=== PATIENT | male | born 1970 | race Caucasian/White ===

== ENCOUNTER → 2020-03-14 | Outpatient (CLI) | payer OTHER | END | disposition home or self-care (01) | LOC: CVU 13:05 | PROVIDERS: ATTEND Family Medicine | DX: I70.203 Unspecified atherosclerosis of native arteries of extremities, bilateral legs (principal); E11.622 Type 2 diabetes mellitus with other skin ulcer; E11.65 Type 2 diabetes mellitus with hyperglycemia; E78.2 Mixed hyperlipidemia; L98.499 Non-pressure chronic ulcer of skin of other sites with unspecified severity | CPT/HCPCS: 93922; 93925 ==

== ENCOUNTER → 2020-03-23 | Outpatient (CLI) | payer OTHER | END | disposition home or self-care (01) | LOC: WOUND 13:03 | PROVIDERS: ATTEND Family Medicine | DX: I87.313 Chronic venous hypertension (idiopathic) with ulcer of bilateral lower extremity (principal); E11.622 Type 2 diabetes mellitus with other skin ulcer; L97.821 Non-pressure chronic ulcer of other part of left lower leg limited to breakdown of skin; L97.811 Non-pressure chronic ulcer of other part of right lower leg limited to breakdown of skin; E11.21 Type 2 diabetes mellitus with diabetic nephropathy; E78.5 Hyperlipidemia, unspecified; L40.8 Other psoriasis; E66.01 Morbid (severe) obesity due to excess calories; Z68.42 Body mass index [BMI] 45.0-49.9, adult | CPT/HCPCS: 99214 ==

== ENCOUNTER → 2020-03-30 | Outpatient (CLI) | payer OTHER | END | disposition home or self-care (01) | LOC: WOUND 09:45 | PROVIDERS: ATTEND Family Medicine | DX: I87.313 Chronic venous hypertension (idiopathic) with ulcer of bilateral lower extremity (principal); E11.621 Type 2 diabetes mellitus with foot ulcer; I70.245 Atherosclerosis of native arteries of left leg with ulceration of other part of foot; L97.521 Non-pressure chronic ulcer of other part of left foot limited to breakdown of skin; I70.235 Atherosclerosis of native arteries of right leg with ulceration of other part of foot; L97.511 Non-pressure chronic ulcer of other part of right foot limited to breakdown of skin; E11.21 Type 2 diabetes mellitus with diabetic nephropathy; L40.8 Other psoriasis; E78.2 Mixed hyperlipidemia; E66.01 Morbid (severe) obesity due to excess calories; Z68.42 Body mass index [BMI] 45.0-49.9, adult | CPT/HCPCS: 99214 ==

== ENCOUNTER → 2020-04-13 | Outpatient (CLI) | payer OTHER | END | disposition home or self-care (01) | LOC: WOUND 09:37 | PROVIDERS: ATTEND Family Medicine | DX: I87.313 Chronic venous hypertension (idiopathic) with ulcer of bilateral lower extremity (principal); E11.621 Type 2 diabetes mellitus with foot ulcer; L97.521 Non-pressure chronic ulcer of other part of left foot limited to breakdown of skin; L97.511 Non-pressure chronic ulcer of other part of right foot limited to breakdown of skin; E11.21 Type 2 diabetes mellitus with diabetic nephropathy; L40.8 Other psoriasis; E78.2 Mixed hyperlipidemia; E66.01 Morbid (severe) obesity due to excess calories; Z68.42 Body mass index [BMI] 45.0-49.9, adult | CPT/HCPCS: 99214 ==

== ENCOUNTER → 2020-04-27 | Outpatient (CLI) | payer OTHER | END | disposition home or self-care (01) | LOC: WOUND 08:54 | PROVIDERS: ATTEND Family Medicine | DX: I87.313 Chronic venous hypertension (idiopathic) with ulcer of bilateral lower extremity (principal); E11.621 Type 2 diabetes mellitus with foot ulcer; L97.528 Non-pressure chronic ulcer of other part of left foot with other specified severity; L97.518 Non-pressure chronic ulcer of other part of right foot with other specified severity; E11.21 Type 2 diabetes mellitus with diabetic nephropathy; L40.8 Other psoriasis; E78.2 Mixed hyperlipidemia; E66.01 Morbid (severe) obesity due to excess calories; Z68.42 Body mass index [BMI] 45.0-49.9, adult | CPT/HCPCS: 99213 ==

== ENCOUNTER 2020-05-24 16:15 | Inpatient (IN) | payer OTHER ==
[~2020-05-24] VITALS: Ht 180.3 cm; Wt 162.0 kg
--- NOTE | 2020-05-24 17:02 | NUR ---
SEEN AAT TELEMEDICINE. CELLULITIS OF RIGHT THIGH AND INTO GROIN. DIABETIC HAS HAD CHILLS AND TMAX OF 99. HR 120-130 PROVIDER TO BEDSIDE: FULL SEPSIS WORKUP AND ADMIT LINE OF DEMARCATION TO RIGHT THIGH DRAWN AT 1700 05/24/20
--- NOTE | 2020-05-24 17:30 | NUR ---
piv placed from which 1 set of blood cultures drawn, lab at bedside for rest of septic workup labs including 2nd set of blood cultures cc ua obtained and sent as well
[2020-05-24] MEDS ORDERED: CEFTRIAXONE PMX 1GM/50ML 50 ML ONE (17:33)
[2020-05-24 17:52] LABS: BASOPHILS # (AUTO) 0.04 x10^3/uL (0-0.1); BASOPHILS % (AUTO) 0 % (0-1); EOSINOPHILS # (AUTO) 0.12 x10^3/uL (0-0.4); EOSINOPHILS % (AUTO) 1 % (1-7); LYMPHOCYTES # (AUTO) 1.17 x10^3/uL (1-3.4); LYMPHOCYTES % (AUTO) 10 % (22-44); MD NO; MEAN CORPUSCULAR HEMOGLOBIN 26.9 pg (27.5-34.5); MEAN CORPUSCULAR HGB CONC 32.5 g/dL (33.2-36.2); MEAN PLATELET VOLUME 8.7 fL (7.4-10.4); MONOCYTES % (AUTO) 8 % (2-9); NEUTROPHILS # (AUTO) 9.55 x10^3/uL (1.8-6.8); NEUTROPHILS % (AUTO) 80 % (42-75); PLATELET COUNT 292 x10^3/uL (130-400); RED BLOOD COUNT 5.88 x10^6/uL (4.38-5.82); RED CELL DISTRIBUTION WIDTH 14.6 % (9.4-14.8)
[2020-05-24 17:53] LABS: ALANINE AMINOTRANSFERASE 27 U/L (12-78); ALBUMIN 3.3 g/dL (3.4-5.0); ANION GAP 6 mmol/L (5-15); CALCIUM 9.8 mg/dL (8.5-10.1); CHLORIDE 99 mmol/L (98-107); CREATININE 1.26 mg/dL (0.7-1.3)
[2020-05-24] MEDS ORDERED: IBUPROFEN 600 MG TABLET ONE (17:53)
[2020-05-24 17:55] LABS: ALKALINE PHOSPHATASE 52 U/L (45-117); BILIRUBIN,TOTAL 0.4 mg/dL (0.2-1.0); TOTAL PROTEIN 8.4 g/dL (6.4-8.2)
--- NOTE | 2020-05-24 17:59 | NUR ---
ABX/1ST LITER OF NS COMPLETE/600MG OF MOTRIN FOR FEVER OF 99.9
[2020-05-24] MEDS ORDERED: CEFTRIAXONE PMX 1GM/50ML 50 ML IVPB ONE (18:00)
[2020-05-24] MEDS ORDERED: SODIUM CHLORIDE 0.9% 1,000 ML IV SCH (18:13)
[2020-05-24 18:24] LABS: MICROSCOPIC AUTO
[2020-05-24] MEDS ORDERED: IBUPROFEN 600 MG TABLET PO ONE (18:30)
[2020-05-24] MEDS ORDERED: SODIUM CHLORIDE FLUSH 10ML SYR IVF PRN (18:30)
[2020-05-24] MEDS ORDERED: morphine SULFATE 10 MG/ML, 1ML IVPush PRN (18:30)
[2020-05-24] MEDS ORDERED: ENALAPRILAT 1.25 MG/ML, 2ML IVPush PRN (18:30)
[2020-05-24] MEDS ORDERED: SODIUM CHLORIDE 0.9% 1,000ML IVBOLUS ONE (18:30)
[2020-05-24] MEDS ORDERED: LABETALOL 5MG/ML, 20ML IVPush PRN (18:30)
[2020-05-24] MEDS ORDERED: DOCUSATE 100 MG CAPSULE PO PRN (18:30)
[2020-05-24] MEDS ORDERED: KETOROLAC 30 MG/1 ML IM PRN (18:30)
[2020-05-24] MEDS ORDERED: KETOROLAC 30 MG/1 ML ONE (19:00)
--- NOTE | 2020-05-24 19:02 | NUR ---
REDNESS RECEDING FROM LINE OF DEMARCATION MEDICATED FOR PAIN WELL INPATIENT ABX 1/2 WELL MIVF
[2020-05-24] MEDS: AMPICILLIN/SULBACTAM 3 GM in SODIUM CHLORIDE 0.9% 100 ML IV SCH (19:06)
--- NOTE | 2020-05-24 19:17 | NUR ---
VIBRAMYCIN REQUESTED FROM PHARMACY
[2020-05-24] MEDS ORDERED: ROSU20TA2 PO (20:10)
[2020-05-24] MEDS ORDERED: PIOG1TAB16 PO (20:13)
[2020-05-24] MEDS ORDERED: LISI5TAB7 PO (20:13)
[2020-05-24] MEDS ORDERED: HYDR25TA6 PO (20:13)
[2020-05-24] MEDS ORDERED: LORA10TA62 PO (20:13)
[2020-05-24] MEDS ORDERED: SITA100T PO (20:13)
[2020-05-24] MEDS ORDERED: FENO160T PO (20:13)
--- NOTE | 2020-05-24 20:13 | NUR ---
PRIOR TO TRANSFER UPSTAIRS PROVIDED WITH MEAL, TOLD TO WAIT UNTIL ACCUCHECK FOR SLIDING SCALE COVERAGE UN ADMINISTERED DOXYCYCLINE SENT WITH PATIENT
[2020-05-24] MEDS: HEPARIN 5,000 UNITS/ML, 1ML SQ SCH (20:30)
[2020-05-24] MEDS ORDERED: HYDROCHLOROTHIAZIDE 25 MG TABLET PO ONE (20:30)
[2020-05-24 20:33] VITALS: BP 119/86
[2020-05-24] MEDS: DOXYCYCLINE 100 MG in DEXTROSE 5% 250 ML IV SCH (20:33)
[2020-05-24] MEDS: ATORVASTATIN 10 MG TABLET PO SCH (21:27)
[2020-05-24] MEDS: INSULIN REGULAR 100 UNITS/ML, 3ML VIAL SQ-INSULIN SCH (21:28)
[2020-05-25 01:28] VITALS: BP 106/66
[2020-05-25] MEDS: AMPICILLIN/SULBACTAM 3 GM in SODIUM CHLORIDE 0.9% 100 ML IV SCH ×3 (03:07→18:37)
[2020-05-25] MEDS: HEPARIN 5,000 UNITS/ML, 1ML SQ SCH ×3 (03:11→20:30)
[2020-05-25 04:59] LABS: BASOPHILS # (AUTO) 0.03 x10^3/uL (0-0.1); BASOPHILS % (AUTO) 0 % (0-1); EOSINOPHILS # (AUTO) 0.41 x10^3/uL (0-0.4); EOSINOPHILS % (AUTO) 4 % (1-7); LYMPHOCYTES # (AUTO) 1.61 x10^3/uL (1-3.4); LYMPHOCYTES % (AUTO) 15 % (22-44); MD NO; MEAN CORPUSCULAR HEMOGLOBIN 26.4 pg (27.5-34.5); MEAN CORPUSCULAR HGB CONC 31.7 g/dL (33.2-36.2); MEAN PLATELET VOLUME 8.5 fL (7.4-10.4); MONOCYTES # (AUTO) 1.38 x10^3/uL (0.2-0.8); MONOCYTES % (AUTO) 13 % (2-9); NEUTROPHILS # (AUTO) 7.63 x10^3/uL (1.8-6.8); NEUTROPHILS % (AUTO) 69 % (42-75); PLATELET COUNT 271 x10^3/uL (130-400); RED BLOOD COUNT 5.51 x10^6/uL (4.38-5.82); RED CELL DISTRIBUTION WIDTH 14.8 % (9.4-14.8)
[2020-05-25 05:04] LABS: ANION GAP 5 mmol/L (5-15); CALCIUM 9.1 mg/dL (8.5-10.1); CHLORIDE 105 mmol/L (98-107); CREATININE 1.09 mg/dL (0.7-1.3)
[2020-05-25 07:20] VITALS: BP 109/62
[2020-05-25] MEDS: LISINOPRIL 5 MG TABLET PO SCH (07:55)
[2020-05-25] MEDS: FENOFIBRATE 145 MG TABLET PO SCH (07:56)
[2020-05-25] MEDS: LINAGLIPTIN 5 MG TAB PO SCH (08:06)
[2020-05-25] MEDS: INSULIN REGULAR 100 UNITS/ML, 3ML VIAL SQ-INSULIN SCH ×4 (08:06→20:58)
[2020-05-25] MEDS: PIOGLITAZONE HCL PO SCH (09:00)
[2020-05-25] MEDS: METFORMIN HCL PO SCH (09:00)
[2020-05-25] MEDS: [UNRECOGNIZED DRUG - OTHER] PO SCH (09:00)
[2020-05-25] MEDS: DOXYCYCLINE 100 MG in DEXTROSE 5% 250 ML IV SCH ×2 (09:22→20:58)
[2020-05-25] MEDS: ACETAMINOPHEN 325 MG TABLET PO PRN (11:38)
[2020-05-25 14:37] VITALS: BP 107/71
[2020-05-25] MEDS: KETOCONAZOLE 2%, 30GM TP SCH ×2 (16:08→21:28)
[2020-05-25 18:15] VITALS: BP 131/86
[2020-05-25] MEDS: ATORVASTATIN 10 MG TABLET PO SCH (20:57)
[2020-05-26 02:58] VITALS: BP 110/70
[2020-05-26] MEDS: AMPICILLIN/SULBACTAM 3 GM in SODIUM CHLORIDE 0.9% 100 ML IV SCH ×2 (03:00→11:28)
[2020-05-26] MEDS: HEPARIN 5,000 UNITS/ML, 1ML SQ SCH ×2 (03:07→11:34)
[2020-05-26 07:36] VITALS: BP 120/79
[2020-05-26] MEDS: INSULIN REGULAR 100 UNITS/ML, 3ML VIAL SQ-INSULIN SCH ×2 (07:38→11:38)
[2020-05-26] MEDS: METFORMIN HCL PO SCH (08:44)
[2020-05-26] MEDS: [UNRECOGNIZED DRUG - OTHER] PO SCH (08:44)
[2020-05-26] MEDS: PIOGLITAZONE HCL PO SCH (08:44)
[2020-05-26] MEDS: FENOFIBRATE 145 MG TABLET PO SCH (08:46)
[2020-05-26] MEDS: LISINOPRIL 5 MG TABLET PO SCH (08:46)
[2020-05-26] MEDS: LINAGLIPTIN 5 MG TAB PO SCH (08:46)
[2020-05-26] MEDS: KETOCONAZOLE 2%, 30GM TP SCH (09:00)
[2020-05-26] MEDS: DOXYCYCLINE 100 MG in DEXTROSE 5% 250 ML IV SCH (09:33)
[2020-05-26] MEDS: ACETAMINOPHEN 325 MG TABLET PO PRN (09:34)
[2020-05-26] MEDS ORDERED: KETO15CR17 TP (10:25)
[2020-05-26] MEDS ORDERED: DOXY100T PO (10:25)
[2020-05-26] MEDS ORDERED: AMOX1TAB64 PO (10:25)
[2020-05-26] MEDS ORDERED: FLU VACC QS2020-21(6MOS UP)/PF 60MCG/0.5 ML SYR IM-VACC ONE (13:00)
== END 2020-05-26 13:23 | disposition home or self-care (01) | DRG 603 ==
LOC: ED 18:28 → EDIP 18:48 → 3N 20:15
PROVIDERS: ADMIT Family Medicine; ATTEND Internal Medicine
DX: L03.116 Cellulitis of left lower limb (principal); Z68.42 Body mass index [BMI] 45.0-49.9, adult; E87.2 Acidosis; L03.115 Cellulitis of right lower limb; E11.9 Type 2 diabetes mellitus without complications; I10 Essential (primary) hypertension; E78.5 Hyperlipidemia, unspecified; B35.4 Tinea corporis; E66.9 Obesity, unspecified; B95.5 Unspecified streptococcus as the cause of diseases classified elsewhere
CPT/HCPCS: 36415; 80048; 80053; 81001; 82962; 83036; 83605; 85025; 87040; 90686; 93005; 96360; 96372; G0378; J0295; J0696; J1815; J1885; J7060; J7030